=== PATIENT | male | born 1990 | race Caucasian/White ===

== ENCOUNTER 2025-02-17 13:43 | Emergency (ER) | payer OTHER, SELFPAY ==
[2025-02-17 13:44] VITALS: BP 164/108; PULSE 108; RESP 16; TEMP 37.1; O2SAT 98; BMI 28.2
--- NOTE | 2025-02-17 14:16 | EKG12_ITS ---
Test Reason : CP Blood Pressure : */* mmHG Vent. Rate : 103 BPM Atrial Rate : 103 BPM P-R Int : 136 ms QRS Dur : 84 ms QT Int : 324 ms P-R-T Axes : 45 21 31 degrees QTcB Int : 424 ms Sinus tachycardia Otherwise normal ECG Confirmed by BRITTNEY ALLEN, EWELINA ([id number]), mapping editor ELSY SUMMERS ([id number]) on 02/18/2025 1:32:27 PM Referred By: DANY/RIANA Confirmed By: EWELINA LUGO MD
--- NOTE | 2025-02-17 14:16 | ED.VIS.CHEST ---
HPI History of Present Illness Chief Complaint: Chest Pain Narrative Narrative: Chief complaint and HPI: Anxiety and chest pain. 34-year-old male with past medical history of HTN, anxiety presents for evaluation of anxiety and chest pain. Patient states he has been under a lot of stress lately. States he was sitting at a gas station and just got off the phone with his with a stressful conversation. States he then got a doom and gloom feeling in which his anxiety increased and he became short of breath with chest tightness. EMS was called and he was given 4 baby aspirin. He states I think I may be having a panic attack. He denies any fever, chills, abdominal pain, nausea, vomiting. Denies any bilateral lower extremity swelling or pain. No history of recent surgery. Is a traveling salesman. Review of systems: See HPI Medications: As listed on the chart Allergies: As listed on the chart PFSH: Per chart Vital signs: As listed on the chart. Reviewed. Physical exam: Gen: A&O x3, anxious Head: Normocephalic, atraumatic Eyes: No sclera icterus, conjunctiva clear ENT: Moist mucous membranes Neck: Trachea midline, No JVD CV: Tachycardic, regular rhythm, no murmurs, no peripheral edema Resp: Lungs CTA BL, no w/r/c GI: Abd soft, non-distended, non-tender, no r/r/g Musc: Full ROM, no deformity Skin: Warm, dry Neuro: Alert, oriented, grossly intact, sensation intact Psych: Cooperative, anxious [facility] Medical History (Updated 02/17/25 @ 13:48 by Paola Aguilar) Anxiety Home Medications ?Medication ?Instructions ?Recorded ?Last Taken ?Type amlodipine 5 mg tablet 5 mg PO DAILY 02/17/25 02/16/25 History buspirone 10 mg tablet 10 mg PO DAILY 02/17/25 02/16/25 History metoprolol succinate 25 mg 25 mg PO DAILY 02/17/25 02/16/25 History tablet,extended release 24 hr Allergy/AdvReac Type Severity Reaction Status Date / Time animal dander AdvReac Other Verified 07/19/22 08:04 Sulfa (Sulfonamide AdvReac Unknown Verified 06/27/16 22:16 Antibiotics) Social History Smoking Status: Never smoker EXAM Physical Exam Const Vital Signs: 02/17/25 13:44 02/17/25 14:43 02/17/25 15:43 Temperature 98.8 F Temperature Source Oral Pulse Rate 108 H 85 88 Respiratory Rate 16 19 H 23 H Blood Pressure 164/108 H 129/91 H Blood Pressure Mean 126 103 Pulse Ox 98 97 96 Oxygen Delivery Method Room Air Room Air Room Air 02/17/25 16:00 Temperature Temperature Source Pulse Rate 93 Respiratory Rate 20 H Blood Pressure 129/91 H Blood Pressure Mean 103 Pulse Ox 100 Oxygen Delivery Method Room Air MDM MDM MDM Narrative Medical decision making narrative: 34-year-old male with past medical history of HTN, anxiety presents for evaluation of anxiety and chest pain. Patient states he has been under a lot of stress lately. States he was sitting at a gas station and just got off the phone with his with a stressful conversation. States he then got a doom and gloom feeling in which his anxiety increased and he became short of breath with chest tightness. EMS was called and he was given 4 baby aspirin prior to arrival. Differential diagnosis includes but is not limited to panic attack, anxiety reaction, ACS, PE, electrolyte abnormality, thyroid disease. Suspect more of anxiety reaction. NS bolus and Ativan ordered. Cardiac workup ordered. EKG and chest x-ray reviewed see below. CBC without leukocytosis or anemia. Platelets unremarkable. D-dimer unremarkable. BMP unremarkable without electrolyte abnormality or LYNETTE. Magnesium unremarkable. Troponin unremarkable. Delta pending. BNP unremarkable. TSH unremarkable. On reevaluation, patient's symptom has resolved. He is no longer anxious and is now calm in the room. I suspect more of an anxiety attack versus ACS. Delta troponin pending at this time. Patient signed out to oncoming physician. If troponin is unremarkable, plan will be to discharge home. Patient was updated of all the results and the plan. He confirmed understanding. Follow-up with PCP. EKG: Interpreted by me/EM physician: EKG shows sinus tachycardia without any acute ischemic changes. Heart rate 103. Diagnostic: Interpreted by me/EM physician: Chest x-ray without pneumonia, effusion, cardiomegaly, pneumothorax. Radiology in agreement. Per radiology, chronic spinal changes. Impression: 1. Chest pain 2. Anxiety reaction 3. HTN with history of HTN Lab Data Labs: Laboratory Results - last 24 hr 02/17/25 02/17/25 13:47 15:25 WBC 7.7 RBC 4.55 L Hgb 14.9 Hct 41.8 MCV 91.9 MCH 32.7 H MCHC 35.6 RDW Std Deviation 38.0 RDW Coeff of Pato 11.5 L Plt Count 216 MPV 11.2 Immature Gran % (Auto) 0.400 Neut % (Auto) 61.4 Lymph % (Auto) 23.7 Parker % (Auto) 8.8 Eos % (Auto) 4.7 Baso % (Auto) 1.0 Absolute Neuts (auto) 4.7 Absolute Lymphs (auto) 1.83 Nucleated RBC % 0 D-Dimer Quant (PE/DVT) 0.27 Sodium Cancelled 136 Potassium Cancelled 3.9 Chloride Cancelled 103 Carbon Dioxide Cancelled 20.6 L Anion Gap Cancelled 12 BUN Cancelled 11 Creatinine Cancelled 0.81 Estim Creat Clear Calc Cancelled 138.39 Est GFR (MDRD) Non-Af Cancelled 120 BUN/Creatinine Ratio Cancelled 13.3 Glucose Cancelled 94 Calcium Cancelled 9.1 Magnesium Cancelled 2.0 Troponin T High Sens Cancelled < 6 NT pro BNP II Cancelled < 36 TSH Cancelled 1.330 Radiography Diagnostic Testing: Clinical Impression(s) from Imaging Studies Chest X-Ray 02/17/25 14:30 IMPRESSION: Mild thoracic spine degenerative changes are noted, along with thoracic DISH. Lungs appear clear throughout. No pleural effusion or pneumothorax is seen. The cardiomediastinal silhouette is within the normal range. No evidence of acute cardiopulmonary disease. Reading Location: [place] [id number] Discharge Plan Triage Chief Complaint: Chest Pain ED Provider: Grayson Cleveland Dx/Rx/DC Orders Prescriptions: No Action buspirone 10 mg tablet 10 mg PO DAILY metoprolol succinate 25 mg tablet extended release 24 hr 25 mg PO DAILY amlodipine 5 mg tablet 5 mg PO DAILY Primary Care Provider: Arnoldo Obregon [employer] SAL[employer] Referrals: Care Physician,No Primary [Non-Staff] - Print Language: Japanese
--- NOTE | 2025-02-17 14:30 | RAD_ITS ---
PROCEDURE: CHEST PA AND LATERAL 02/17/2025 REASON FOR EXAM: CHEST PAIN TECHNIQUE: CHEST PA AND LATERAL COMPARISON: None. RAD/Chest PA and Lateral IMPRESSION: Mild thoracic spine degenerative changes are noted, along with thoracic DISH. Lungs appear clear throughout. No pleural effusion or pneumothorax is seen. The cardiomediastinal silhouette is within the normal range. No evidence of acute cardiopulmonary disease. Reading Location: [place] [id number]
[2025-02-17 14:36] LABS: Absolute Lymphocyte Count 1.83 X10^3/uL (0.83-4.51); Absolute Neutrophil Count 4.7 X10^3/uL (2.0-7.7); Basophil# 0.08 X10^3/uL; Eosinophil# 0.36 X10^3/uL; Eosinophils% 4.7 % (0-5); Hematocrit 41.8 % (40-54); Hemoglobin 14.9 g/dL (13.0-16.5); Lymphocyte # 1.83 X10^3/ul (0.83-4.51); Lymphocyte % 23.7 % (19-41); Mean Corp Hgb Conc 35.6 g/dL (32-36); Mean Corpuscular Hgb 32.7 pg (27.0-32.0); Mean Corpuscular Volume 91.9 fL (80-94); Mean Platelet Vol. 11.2 fl (6.2-12.0); Monocyte# 0.68 X10^3/uL; Monocyte% 8.8 % (0-10); NRBC Flagged by Analyzer 0 % (0-5); Neutrophil # 4.73 X10^3/uL (2.7-7.7); Neutrophil % 61.4 % (47-70); Platelet Count 216 K/mm3 (150-450); RBC Distribution Width CV 11.5 % (11.6-14.6); Red Blood Count 4.55 M/mm3 (4.6-6.2); White Blood Count 7.7 K/mm3 (4.4-11.0)
[2025-02-17] MEDS: 0.9% Normal Saline (1000mL) 1,000 ML 999 ML IV (14:40)
[2025-02-17] MEDS: Lorazepam 2 MG/ML WCH Syringe 1 MG IV (14:40)
[2025-02-17 14:43] VITALS: PULSE 85; RESP 19; O2SAT 97
[2025-02-17 14:55] LABS: D-Dimer Quantitative (DVT/PE) 0.27 FEU/ug/m (0.27-0.49)
[2025-02-17 15:43] VITALS: BP 129/91; PULSE 88; RESP 23; O2SAT 96
[2025-02-17 16:00] VITALS: BP 129/91; PULSE 93; RESP 20; O2SAT 100
[2025-02-17 16:05] LABS: Anion Gap 12 (5-15); BUN 11 mg/dL (4-19); BUN/Creat Ratio 13.3 RATIO (10-20); Calcium,Total 9.1 mg/dL (7.6-11.0); Carbon Dioxide 20.6 mmol/L (21.0-32.0); Chloride 103 mmol/L (98-108); Creatinine, Serum 0.81 mg/dL (0.70-1.20); EST Glomerular Filtration Rate 120 (>60); Estimated Creatinine Clearance 138.39 ml/min (50-250); Glucose 94 mg/dL (70-99); Potassium 3.9 mmol/L (3.3-5.1); Sodium Level 136 mmol/L (133-145)
[2025-02-17 16:07] LABS: Pro- Brain NATRIURETIC PEPTIDE < 36 pg/mL (<=450); Troponin T High Sensitivity < 6 ng/L (<=22)
[2025-02-17 17:00] VITALS: BP 122/77; PULSE 91; RESP 15; O2SAT 97
[2025-02-17 17:17] LABS: Troponin T High Sens 2 HR < 6 ng/L (<=22)
[2025-02-17 17:25] VITALS: BP 122/77; PULSE 91; RESP 15; TEMP 37.1; O2SAT 97
== END 2025-02-17 17:33 | disposition home or self-care (01) ==
PROVIDERS: Emergency Provider Surgery; PCP Nurse Practitioner Family; Visit Provider Surgery
DX: R07.9 Chest pain, unspecified (principal); I10 Essential (primary) hypertension; R06.02 Shortness of breath; F41.1 Generalized anxiety disorder
CPT/HCPCS: 71046; 80048; 83735; 83880; 84443; 84484; 85025; 85379; 93005; 96361; 96374; 99285; A4216